=== PATIENT | male | born 1960 | race Caucasian/White ===

== ENCOUNTER 2025-06-01 13:38 | Emergency (ER) | payer BC ==
[2025-06-01 15:52] VITALS: BP 169/89; PULSE 70
== END 2025-06-01 15:51 | disposition home or self-care (01) ==
LOC: LB.ED 13:38
DX: U07.1 COVID-19 (principal); I10 Essential (primary) hypertension; Z94.0 Kidney transplant status; Z91.048 Other nonmedicinal substance allergy status; Z88.2 Allergy status to sulfonamides
CPT/HCPCS: 96365; 99283-25; J0248; J7050

== ENCOUNTER 2025-06-02 14:02 | Emergency (ER) | payer BC ==
[2025-06-02 16:07] VITALS: BP 129/75; PULSE 53
== END 2025-06-02 15:30 | disposition home or self-care (01) ==
LOC: LB.ED 14:02
DX: U07.1 COVID-19 (principal); I10 Essential (primary) hypertension; E78.00 Pure hypercholesterolemia, unspecified; Z88.2 Allergy status to sulfonamides; Z88.8 Allergy status to other drugs, medicaments and biological substances; Z79.82 Long term (current) use of aspirin; Z79.899 Other long term (current) drug therapy
CPT/HCPCS: 96365; 99281-25; 99283; J0248; J7050

== ENCOUNTER 2025-06-03 16:46 | Emergency (ER) | payer BC ==
[2025-06-03 17:50] VITALS: BP 160/88; PULSE 56
== END 2025-06-03 17:35 | disposition designated cancer center or children's hospital (05) ==
LOC: LB.ED 16:46
DX: U07.1 COVID-19 (principal); I10 Essential (primary) hypertension; E78.00 Pure hypercholesterolemia, unspecified; K21.9 Gastro-esophageal reflux disease without esophagitis; Z79.82 Long term (current) use of aspirin; Z79.899 Other long term (current) drug therapy; Z88.8 Allergy status to other drugs, medicaments and biological substances; Z88.2 Allergy status to sulfonamides
CPT/HCPCS: 96365; 99281-25; J0248; J7050